=== PATIENT | female | born 2000 | race African-American/Black ===

== ENCOUNTER 2023-10-06 10:48 | Inpatient (IN) ==
[2023-10-06] MEDS ORDERED: Lidocaine 1% VIAL 10 MG/ML 30 ML VIAL INJ PRN (13:14)
[2023-10-06] MEDS ORDERED: Buffered Lidocaine 1% SYRIN 1 ml INTRADERM ONE (13:14)
[2023-10-06] MEDS ORDERED: Lactated Ringers 1000 ml BAG 1,000 ML IV ONE (13:14)
[2023-10-06] MEDS ORDERED: Lactated Ringers 1000 ml BAG 1,000 ML IV SCH (14:00)
[2023-10-06 14:13] LABS: ABS Lymphocytes 1.3 10^3/uL (1.0-4.8); ABS Monocytes 0.6 10^3/uL (0.0-0.9); ABS Neutrophils 4.8 10^3/uL (1.5-7.6); ABS Nucleated RBC 0.01 10^3/ul; Eosinophil % 0.7 %; Hematocrit 31.9 % (35-45); Hemoglobin 10.9 g/dL (11.5-14.3); Lymphocyte % 19.4 %; Mean Corpuscular Hemoglobin 31.8 pg (27-33); Mean Corpuscular Hgb Conc 34.1 g/dL (31-36); Mean Corpuscular Volume 93.3 fL (80-97); Mean Platelet Volume 9.7 fL (7.5-11.2); Nucleated Red Blood Cells % 0.2 %/100WBC (0.0-0.8); Platelet Count 177 10^3/uL (150-450); Red Blood Count 3.42 10^6/uL (3.63-4.92); Red Cell Distribution Width 13.7 % (12-17); White Blood Count 6.7 10^3/uL (3.8-11.8)
[2023-10-06 15:04] LABS: Urine Benzodiazepine Screen None Detected (None Detect); Urine Cannabinoids Screen None Detected (None Detect); Urine Opiates Screen None Detected (None Detect)
[2023-10-06] MEDS: miSOPROStol 100 mcg TAB PO ONE (17:32)
[2023-10-06] MEDS: Prochlorperazine 5 mg/ml 2 ml VIAL (10 mg) IV PRN (22:10)
[2023-10-07] MEDS ORDERED: Sodium Citrate/Citric Acid LIQ 15 ML UDC PO PRN (01:50)
[2023-10-07] MEDS ORDERED: Lactated Ringers 1000 ml BAG 1,000 ML IV ONE (01:50)
[2023-10-07] MEDS ORDERED: Phenylephrine 40 mcg/mL 10mL (400mcg) SYRINGE IV PUSH PRN ×2 (01:50)
[2023-10-07] MEDS ORDERED: OBEPIDURAL (200 ML) 200 ML EPIDURAL SCH (02:00)
[2023-10-07] MEDS: Oxytocin in LR 20,000 MILLI.UNIT/1,000 ML BAG IV SCH (09:33)
[2023-10-07] MEDS: OBEPIDURAL (200 ML) 200 ML EPIDURAL ONE (09:33)
[2023-10-07] MEDS ORDERED: Tranexamic Acid 1 GM/100ML BAG 0 MG/0 ML BAG IV ONE (09:43)
[2023-10-07] MEDS ORDERED: Glycerin ADULT 2.4 gm SUPP PR PRN (09:53)
[2023-10-07] MEDS ORDERED: Oxytocin in LR 20,000 MILLI.UNIT/1,000 ML BAG IV SCH (09:55)
[2023-10-07] MEDS: Dibucaine 1% OINT 28.35 GM TUBE PR PRN (10:24)
[2023-10-07] MEDS: Witch Hazel PAD JAR TOPICAL PRN (10:25)
[2023-10-08] MEDS: Measles, Mumps,Rubella VACC 0.5 ML/VIAL SUBCUT ONE (05:25)
[2023-10-08] MEDS: Lidocaine 1.5% EPI 1:200,000 30 ML SDV ONE (05:26)
[2023-10-08] MEDS: Lactated Ringers 1000 ml BAG 1,000 ML IV SCH (05:27)
[2023-10-08 07:48] LABS: ABS Eosinophils 0.1 10^3/uL (0.0-0.5); ABS Lymphocytes 1.6 10^3/uL (1.0-4.8); ABS Monocytes 1.2 10^3/uL (0.0-0.9); ABS Neutrophils 7.1 10^3/uL (1.5-7.6); ABS Nucleated RBC 0.01 10^3/ul; Eosinophil % 0.8 %; Hematocrit 28.4 % (35-45); Hemoglobin 9.6 g/dL (11.5-14.3); Lymphocyte % 16.4 %; Mean Corpuscular Hemoglobin 31.6 pg (27-33); Mean Platelet Volume 9.6 fL (7.5-11.2); Nucleated Red Blood Cells % 0.1 %/100WBC (0.0-0.8); Platelet Count 164 10^3/uL (150-450); Red Blood Count 3.05 10^6/uL (3.63-4.92); Red Cell Distribution Width 13.6 % (12-17)
[2023-10-08 20:05] LABS: Albumin 3.3 g/dL (3.2-5.2); Albumin/Globulin Ratio 1.6 (1-3); Calcium 8.7 mg/dL (8.6-10.3); Creatinine, Serum 0.83 mg/dL (0.51-0.95); Globulin 2.1 g/dL (2-4); Total Bilirubin 0.5 mg/dL (0.2-1.0); Total Protein 5.4 g/dL (6.4-8.9); eGFR CKD-EPI 102.2 (>60)
[2023-10-08 23:01] LABS: Urine Creatinine Concentration 41.38 mg/dL (20.00-320.00); Urine TP Creat Ratio 0.24 mg/mg
[2023-10-08 23:16] LABS: Urine Appearance Clear; Urine Bilirubin Negative (Negative); Urine Blood 3+ (Negative); Urine Color Colorless; Urine Glucose Negative (Negative); Urine Ketones Negative (Negative); Urine Nitrite Negative (Negative); Urine Protein Negative (Negative); Urine Specific Gravity 1.008 (1.002-1.030); Urine Urobilinogen Negative (Negative)
[2023-10-08 23:24] LABS: Urine Bacteria Absent /HPF (Absent); Urine Red Blood Cell 3+(>10/hpf) /HPF (0-Trace); Urine Squamous Epithelial Cell Present /HPF (Absent); Urine White Blood Cell 1+(6-10/hpf) /HPF (0-Trace)
[2023-10-09 12:58] VITALS: BP 134/79
== END 2023-10-09 15:11 | disposition home or self-care (01) | DRG 560 ==
LOC: MCHOBOUT 10:48 → MCHOB 12:40
PROVIDERS: ADMIT Advanced Practice Midwife; ATTEND Midwife